=== PATIENT | female | born 1950 | race Caucasian/White ===

== ENCOUNTER 2023-03-25 23:31 | Emergency (ER) | payer OTHER ==
[~2023-03-25] VITALS: Ht 175.3 cm; Wt 91.2 kg
[2023-03-25 23:35] VITALS: BP 120/58; PULSE 97; RESP 14; TEMP 97.2; O2SAT 99
[2023-03-26] MEDS ORDERED: LIDOCAINE 2% 1000 MG/50 ML VIAL INJ ONE (00:25)
[2023-03-26] MEDS ORDERED: LOTC TP (01:43)
[2023-03-26] MEDS ORDERED: BACI-418 TP (01:43)
[2023-03-26 02:45] VITALS: BP 150/60; PULSE 97; RESP 14; TEMP 97.2; O2SAT 96
== END 2023-03-26 02:40 | disposition home or self-care (01) ==
LOC: MED 23:31
DX: S91.115A Laceration without foreign body of left lesser toe(s) without damage to nail, initial encounter (principal); L30.4 Erythema intertrigo; E11.9 Type 2 diabetes mellitus without complications; I10 Essential (primary) hypertension; I25.2 Old myocardial infarction; Z86.73 Personal history of transient ischemic attack (TIA), and cerebral infarction without residual deficits; Z98.890 Other specified postprocedural states; Z79.899 Other long term (current) drug therapy; Z79.2 Long term (current) use of antibiotics; Z88.5 Allergy status to narcotic agent; W05.0XXA Fall from non-moving wheelchair, initial encounter; Y93.89 Activity, other specified; Y92.89 Other specified places as the place of occurrence of the external cause; Y99.8 Other external cause status
CPT/HCPCS: 12001; 99283; J2001